=== PATIENT | male | born 1995 | race American Indian/Alaskan Native ===

== ENCOUNTER 2017-07-23 22:08 | Emergency (ER) | payer SELFPAY ==
[2017-07-23 23:06] VITALS: BP 121/86
== END 2017-07-23 23:02 | disposition left against medical advice (07) ==
LOC: ED 22:08
DX: Z53.21 Procedure and treatment not carried out due to patient leaving prior to being seen by health care provider (principal)

== ENCOUNTER 2021-01-16 16:03 | Emergency (ER) | payer SELFPAY | END 2021-01-17 08:05 | disposition left against medical advice (07) | LOC: ED 16:03 | DX: Z00.00 Encounter for general adult medical examination without abnormal findings (principal); Z53.21 Procedure and treatment not carried out due to patient leaving prior to being seen by health care provider ==